=== PATIENT | female | born 1995 | race Caucasian/White ===

== ENCOUNTER 2018-07-21 12:27 | Emergency (ER) | payer SELFPAY ==
--- NOTE | 2018-07-21 14:58 | ER ---
Nurse's Notes [facility] Name: Sofya Summers Age: 23 yrs Sex: Female : 1995 Arrival Date: 07/21/2018 Time: 12:33 Bed 9 Private MD: Diagnosis: Abnormal uterine and vaginal bleeding, unspecified Presentation: 07/21 12:36 Presenting complaint: Patient states: " I think I may be and having a ph miscarriage." Pt reports having irregular cycles x 2 months, also reports having heavy vaginal bleeding, low back pain, and sore breasts, states, " I've taken like 3 tests and they have all been negative but I've been having symptoms." Pt reports last episode of bleeding was Tues, denies bleeding or pain at this time. Transition of care: patient was not received from another setting of care. Onset of symptoms was July 21, 2018. Risk Assessment: Do you want to hurt yourself or someone else? Patient reports no desire to harm self or others. Initial Sepsis Screen: Does the patient meet any 2 criteria? No. Patient's initial sepsis screen is negative. Does the patient have a suspected source of infection? No. Patient's initial sepsis screen is negative. 12:36 Method Of Arrival: Ambulatory ph 12:36 Acuity: SARY 3 ph 13:00 Care prior to arrival: None. ss Historical: - Allergies: 12:41 No Known Allergies; ph - PMHx: 12:41 None; ph - Immunization history:: Adult Immunizations up to date. - Social history:: Smoking status: unknown. Screenin:40 Abuse screen: Denies threats or abuse. Denies injuries from another. Nutritional ss screening: No deficits noted. Tuberculosis screening: No symptoms or risk factors identified. Never had TB. Fall Risk None identified. Assessment: 14:40 General: Appears in no apparent distress. comfortable, Behavior is calm, cooperative, ss Denies fever, feeling ill, fatigue, chills. Pain: Complains of pain in suprapubic area Pain currently is 0 out of 10 on a pain scale. Quality of pain is described as crampy, Is episodic. Neuro: Level of Consciousness is awake, alert, obeys commands. Respiratory: Airway is patent Respiratory effort is even, unlabored, Respiratory pattern is regular, symmetrical. GI: Patient currently denies diarrhea, nausea, vomiting. : Reports irregular vaginal bleeding for approx 1 month. Pt reports that two days ago she went to void, and felt pressure, so she pushed and a large clot came out. Pt believed this to be a possible miscarriage as her period has been irregular, but she has had negative tests. Denies burning with urination, urinary frequency. EENT: Nares are clear Oral mucosa is moist. Derm: Skin is intact, is healthy with good turgor, Skin is dry, Skin is pink, warm \\T\\ dry. normal. Vital Signs: 12:41 BP 145 / 94; Pulse 97; Resp 18; Temp 97.4; Pulse Ox 99% on R/A; ph ED Course: 12:33 Patient arrived in ED. sb2 12:41 Triage completed. ph 12:41 Arm band placed on Patient placed in waiting room, Patient notified of wait time. Urine ph obtained. 14:33 Karishma Romero FNP-C [facility]. kb 14:33 Israel Palm MD is Attending Physician. kb 14:40 Patient has correct armband on for positive identification. Bed in low position. Call ss light in reach. 15:06 Meeta Garza, RN is Primary Nurse. ss 15:09 No provider procedures requiring assistance completed. Patient did not have IV access ss during this emergency room visit. Administered Medications: No medications were administered Outcome: 14:57 Discharge ordered by . kb 15:09 Discharged to home ambulatory, with significant other. ss 15:09 Condition: good 15:09 Discharge instructions given to patient, Instructed on discharge instructions, follow up and referral plans. Demonstrated understanding of instructions, follow-up care. 15:10 Patient left the ED. ss Signatures: Karishma Romeor FNP-C FNP-Meeta Padilla, RN RN ss Giselle Swanson RN RN Gilda Horne sb2
--- NOTE | 2018-07-21 14:58 | EDPHYS ---
Physician Documentation [facility] Name: Sofya Summers Age: 23 yrs Sex: Female : 1995 Arrival Date: 07/21/2018 Time: 12:33 Bed 9 Private MD: ED Physician Israel Palm HPI: 07/21 14:54 This 23 yrs old Female presents to ER via Ambulatory with complaints of kb Vaginal Bleeding. 14:54 The patient presents with vaginal bleeding that is spotting. Onset: The kb symptoms/episode began/occurred 3 day(s) ago. Modifying factors: The symptoms are alleviated by nothing, the symptoms are aggravated by nothing. Associated signs and symptoms: Pertinent positives: vaginal bleeding, Pertinent negatives: constipation, cramping, diarrhea, dyspareunia, dysuria, fever, hematuria, nausea, urinary frequency, vaginal discharge, vomiting. Severity of symptoms: At their worst the symptoms were moderate, in the emergency department the symptoms have resolved. The patient has not experienced similar symptoms in the past. The patient has not recently seen a physician. Pt reports a heavy one day period last month that was late, then on Tuesday passed a large clot. Had abd cramps on Tuesday. Reports she hasn't had any pain since Tuesday and now only has a small amount of blood when she wipes. States "I think I had a miscarriage on Tuesday, but the three tests I took were negative.". Historical: - Allergies: 12:41 No Known Allergies; ph - PMHx: 12:41 None; ph - Immunization history:: Adult Immunizations up to date. - Social history:: Smoking status: unknown. ROS: 14:53 Constitutional: Negative for fever, chills, and weight loss, Cardiovascular: Negative kb for chest pain, palpitations, and edema, Respiratory: Negative for shortness of breath, cough, wheezing, and pleuritic chest pain, Back: Negative for injury and pain, MS/Extremity: Negative for injury and deformity, Skin: Negative for injury, rash, and discoloration, Neuro: Negative for headache, weakness, numbness, tingling, and seizure. 14:53 Abdomen/GI: Positive for abdominal cramps. 14:53 : Positive for vaginal bleeding. Exam: 14:54 Constitutional: This is a well developed, well nourished patient who is awake, alert, kb and in no acute distress. Head/Face: Normocephalic, atraumatic. ENT: Nares patent. No nasal discharge, no septal abnormalities noted. Tympanic membranes are normal and external auditory canals are clear. Oropharynx with no redness, swelling, or masses, exudates, or evidence of obstruction, uvula midline. Mucous membranes moist. Neck: Trachea midline, no thyromegaly or masses palpated, and no cervical lymphadenopathy. Supple, full range of motion without nuchal rigidity, or vertebral point tenderness. No Meningismus. Chest/axilla: Normal chest wall appearance and motion. Nontender with no deformity. No lesions are appreciated. Cardiovascular: Regular rate and rhythm with a normal S1 and S2. No gallops, murmurs, or rubs. Normal PMI, no JVD. No pulse deficits. Respiratory: Lungs have equal breath sounds bilaterally, clear to auscultation and percussion. No rales, rhonchi or wheezes noted. No increased work of breathing, no retractions or nasal flaring. Abdomen/GI: Soft, non-tender, with normal bowel sounds. No distension or tympany. No guarding or rebound. No evidence of tenderness throughout. Skin: Warm, dry with normal turgor. Normal color with no rashes, no lesions, and no evidence of cellulitis. MS/ Extremity: Pulses equal, no cyanosis. Neurovascular intact. Full, normal range of motion. Neuro: Awake and alert, GCS 15, oriented to person, place, time, and situation. Cranial nerves II-XII grossly intact. Motor strength 5/5 in all extremities. Sensory grossly intact. Cerebellar exam normal. Normal gait. Vital Signs: 12:41 BP 145 / 94; Pulse 97; Resp 18; Temp 97.4; Pulse Ox 99% on R/A; ph MDM: 14:35 Patient medically screened. kb 14:53 Data reviewed: vital signs, nurses notes. Data interpreted: Pulse oximetry: on room air kb is 99 %. Interpretation: normal. Counseling: I had a detailed discussion with the patient and/or guardian regarding: the historical points, exam findings, and any diagnostic results supporting the discharge/admit diagnosis, lab results, the need for outpatient follow up, an OB/Gyne specialist, to return to the emergency department if symptoms worsen or persist or if there are any questions or concerns that arise at home. 07/21 14:34 Order name: Urine Dipstick--Ancillary (enter results) em1 07/21 14:34 Order name: Urine --Ancillary (enter results) em1 07/21 14:00 Order name: Urine Test (obtain specimen); Complete Time: 14:32 kb 07/21 14:00 Order name: Urine Dipstick-Ancillary (obtain specimen); Complete Time: 14:31 kb Administered Medications: No medications were administered Disposition: 07/21/18 14:57 Discharged to Home. Impression: Abnormal uterine and vaginal bleeding, unspecified. - Condition is Stable. - Discharge Instructions: Abnormal Uterine Bleeding, [id number]. - Medication Reconciliation Form, Thank You Letter, Antibiotic Education, Prescription Opioid Use, Family Work Release form. - Follow up: Emergency Department; When: As needed; Reason: Worsening of condition. Follow up: Private Physician; When: 2 - 3 days; Reason: Recheck today's complaints, Continuance of care, Re-evaluation by your physician. Addendum: 07/23/2018 09:10 Co-signature as Attending Physician, Israel Palm MD I agree with the assessment and k dr plan of care. Signatures: Dispatcher [employer] EDMS Karishma Romero, CALL CENTER DISPATCHER-C CALL CENTER DISPATCHER-Ckb Israel Palm MD MD [facility] Meeta Garza RN RN ss Giselle Swanson RN RN ph Corrections: (The following items were deleted from the chart) 07/21 15:10 14:57 07/21/2018 14:57 Discharged to Home. Impression: Abnormal uterine and vaginal ss bleeding, unspecified. Condition is Stable. Forms are Medication Reconciliation Form, Thank You Letter, Antibiotic Education, Prescription Opioid Use. Follow up: Emergency Department; When: As needed; Reason: Worsening of condition. Follow up: Private Physician; When: 2 - 3 days; Reason: Recheck today's complaints, Continuance of care, Re-evaluation by your physician. kb
[2018-07-21 15:12] LABS: Urine Blood 2+ (NEG); Urine Glucose NEGATIVE (NEG); Urine Protein NEGATIVE (NEG); Urine Specific Gravity 1.025 (1.005-1.030); Urine pH 7.5 (5.0-7.0)
== END 2018-07-21 15:10 | disposition home or self-care (01) ==
LOC: ER 12:27
DX: N93.9 Abnormal uterine and vaginal bleeding, unspecified (principal)
CPT/HCPCS: 81003; 81025; 99283

== ENCOUNTER 2021-02-01 12:42 | Emergency (ER) | payer OTHER, SELFPAY ==
[2021-02-01] MEDS ORDERED: NA CHLORIDE 0.9% 1,000 ML ONE ×2 (14:04→15:12)
[2021-02-01] MEDS ORDERED: PROMETHAZINE INJ 25 MG/ML AMP ONE (14:04)
[2021-02-01 14:07] LABS: Urine Blood Trace-lysed (Negative); Urine Glucose Negative (Negative); Urine Protein 1+ (Negative); Urine Specific Gravity >=1.030 (1.005-1.030); Urine pH 5.5 (5.0-7.0)
[2021-02-01 14:11] LABS: Absolute Lymphocytes (CBC) 2.4 K/uL (0.7-4.9); Basophils % 0.4 % (0-1.3); Hematocrit 38.8 % (36.0-45.0); Lymphocytes % 21.2 % (15.3-44.8); RBC Red Blood Cell Count 4.61 M/uL (3.86-4.86)
[2021-02-01 14:45] LABS: BUN Blood Urea Nitrogen 4 mg/dL (7-18); Bicarbonate 23 mmol/L (21-32); Glucose Level 83 mg/dL (74-106); HCG, Quantitative 91735 mIU/mL (1-3); Potassium 3.5 mmol/L (3.5-5.1); Sodium Level 138 mmol/L (136-145)
--- NOTE | 2021-02-01 15:02 | ER ---
Nurse's Notes [facility] Name: Sofya Summers Age: 25 yrs Sex: Female : 1995 Arrival Date: 02/01/2021 Time: 12:46 Bed 20 Private MD: Diagnosis: 9 weeks gestation of ;Nausea with vomiting, unspecified Presentation: 02/01 12:52 Chief complaint: Patient states: 11 weeks . G1, P0. N/V/D for 3-4 weeks. No ll1 fever. Coronavirus screen: Client denies travel out of the [place] in the last 14 days. At this time, the client does not indicate any symptoms associated with coronavirus-19. Ebola Screen: Patient denies travel to an Ebola-affected area in the 21 days before illness onset. Initial Sepsis Screen: Does the patient meet any 2 criteria? No. Patient's initial sepsis screen is negative. Does the patient have a suspected source of infection? Yes: Acute abdominal pain Other: N/V/D. Risk Assessment: Do you want to hurt yourself or someone else? Patient reports no desire to harm self or others. Onset of symptoms was January 11, 2021. 12:52 Method Of Arrival: Ambulatory ll1 12:52 Acuity: SARY 3 ll1 SPA HOST: 14:22 LMP 11/15/2020 ae4 15:29 1, 0, Living 0, LMP 11/15/2020 kb Historical: - Allergies: 12:55 No Known Allergies; ll1 - PMHx: 12:55 Diabetes - NIDDM; ll1 - PSHx: 12:55 None; ll1 - Immunization history:: Client reports having NOT received the Covid vaccine. Flu vaccine is not up to date. - Social history:: Smoking status: Patient denies any tobacco usage or history of. Screenin:11 Abuse screen: Denies threats or abuse. Nutritional screening: No deficits noted. ae4 Tuberculosis screening: No symptoms or risk factors identified. Fall Risk None identified. Assessment: 14:00 General: Appears in no apparent distress. comfortable, Behavior is calm, cooperative. ae4 Pain: Complains of pain in suprapubic area, right lower quadrant and left lower quadrant described as "crampy". Neuro: Level of Consciousness is awake, alert, obeys commands, Oriented to person, place, time, situation, Appropriate for age. Cardiovascular: Patient's skin is warm and dry. Respiratory: Airway is patent Respiratory effort is even, unlabored, Respiratory pattern is regular, symmetrical. GI: Abdomen is round. GI: Reports nausea, Patient states she has not been "feeling good for about 5 weeks". : Urine is dark yellowish brown in color. EENT: No signs and/or symptoms were reported regarding the EENT system. Derm: Skin is pink, warm \\T\\ dry. Musculoskeletal: No signs and/or symptoms reported regarding the musculoskeletal system. 14:11 Reassessment: signals collection technician at bedside. ae4 15:00 Reassessment: Patient appears in no apparent distress at this time. Patient and/or ph family updated on plan of care and expected duration. Pain level reassessed. Patient is alert, oriented x 3, equal unlabored respirations, skin warm/dry/pink. Vital Signs: 12:52 BP 140 / 92; Pulse 81; Resp 17; Temp 98.5; Pulse Ox 97% ; Weight 102.97 kg; Height 5 ll1 ft. 6 in. (167.64 cm); Pain 10/10; 14:06 BP 127 / 74; Pulse 92; Resp 18; Pulse Ox 100% on R/A; ae4 15:00 BP 118 / 70; Pulse 87; Resp 18; Temp 98.2; Pulse Ox 99% on R/A; ph 12:52 Body Mass Index 36.64 (102.97 kg, 167.64 cm) ll1 ED Course: 12:46 Patient arrived in ED. am2 12:50 Karish[facility]C [facility]. kb 12:50 Fei Nair MD is Attending Physician. kb 12:54 Triage completed. ll1 12:55 Arm band placed on Patient placed in an exam room, on a stretcher. ll1 12:59 Giselle Swanson RN is Primary Nurse. ph 13:54 Inserted saline lock: 20 gauge in left antecubital area, using aseptic technique. Blood dh4 collected. 14:11 Patient has correct armband on for positive identification. Adult w/ patient. Pulse ox ae4 on. NIBP on. 14:32 Matter Eval Tm 1 In Process Unspecified. EDMS 15:58 No provider procedures requiring assistance completed. IV discontinued, intact, ph bleeding controlled, No redness/swelling at site. Pressure dressing applied. Administered Medications: 14:00 Drug: NS 0.9% 1000 ml Route: IV; Rate: 1000 ml; Site: left antecubital; ae4 14:00 Drug: Phenergan (promethazine) 6.25 mg Route: IVP; Site: left antecubital; ae4 14:57 Follow up: Response: Nausea is decreased ae4 14:57 Drug: NS 0.9% 1000 ml Route: IV; Rate: 1000 ml; Site: left antecubital; ae4 Outcome: 15:02 Discharge ordered by . kb 15:58 Patient left the ED. ph 15:58 Discharged to home ambulatory, with significant other. ph 15:58 Condition: good 15:58 Discharge instructions given to patient, Instructed on discharge instructions, follow up and referral plans. medication usage, Demonstrated understanding of instructions, follow-up care, medications, Prescriptions given X 1. Signatures: Dispatcher [employer] EDKarishma Balderrama, PLAYERS ASSISTANT-C PLAYERS ASSISTANT-CkGiselle Shea, RN RN Jaquelin Contreras 2 Catalino Calderon RN RN ae4 David Boucher 4 Ashley Arceo RN RN ll1
--- NOTE | 2021-02-01 15:02 | EDPHYS ---
Physician Documentation [facility] Name: Sofya Summers Age: 25 yrs Sex: Female : 1995 Arrival Date: 02/01/2021 Time: 12:46 Bed 20 Private MD: ED Physician Fei Nair HPI: 02/01 15:29 This 25 yrs old Female presents to ER via Ambulatory with complaints of kb Nausea/Vomiting - 11 wks preg. 15:29 The patient has not experienced similar symptoms in the past. The patient has been kb recently seen by a physician:. 15:29 The patient presents to the emergency department with nausea and vomiting. The kb estimated gestational age is 11 weeks. course: care: at a clinic, Leakage of Fluid: none appreciated. Previous pregnancies: the patient has never been . Associated signs and symptoms: Pertinent positives: abdominal pain, diarrhea, nausea, vomiting. Pt reports nausea and vomiting for 3-4 weeks. States she has told her OB and was prescribed phenergan and diclegis but she is unable to tolerate the medications. States she also has had diarrhea, but that has been going on for about a year. Reports lower abd cramping as well. States "I haven't had an US at all, I haven't heard the heart beat, I don't even know if there's still a baby in there.". REGISTERED NURSE: 14:22 LMP 11/15/2020 ae4 15:29 1, 0, Living 0, LMP 11/15/2020 kb Historical: - Allergies: 12:55 No Known Allergies; ll1 - PMHx: 12:55 Diabetes - NIDDM; ll1 - PSHx: 12:55 None; ll1 - Immunization history:: Client reports having NOT received the Covid vaccine. Flu vaccine is not up to date. - Social history:: Smoking status: Patient denies any tobacco usage or history of. ROS: 15:28 Constitutional: Negative for fever, chills, and weight loss. kb 15:28 Abdomen/GI: Positive for nausea, vomiting, and diarrhea, abdominal cramps. 15:28 All other systems are negative. Exam: 15:28 Constitutional: This is a well developed, well nourished patient who is awake, alert, kb and in no acute distress. Head/Face: Normocephalic, atraumatic. ENT: Moist Mucous membranes Cardiovascular: Regular rate and rhythm with a normal S1 and S2. No gallops, murmurs, or rubs. No pulse deficits. Respiratory: Respirations even and unlabored. No increased work of breathing, no retractions or nasal flaring. Skin: Warm, dry with normal turgor. Normal color. MS/ Extremity: Pulses equal, no cyanosis. Neurovascular intact. Full, normal range of motion. Neuro: Awake and alert, GCS 15, oriented to person, place, time, and situation. Moves all extremities. Normal gait. Psych: Awake, alert, with orientation to person, place and time. Behavior, mood, and affect are within normal limits. 15:28 Abdomen/GI: Inspection: abdomen appears normal, Bowel sounds: normal, in all quadrants, Palpation: soft, in all quadrants, mild abdominal tenderness, in the right lower quadrant and left lower quadrant. Vital Signs: 12:52 BP 140 / 92; Pulse 81; Resp 17; Temp 98.5; Pulse Ox 97% ; Weight 102.97 kg; Height 5 ll1 ft. 6 in. (167.64 cm); Pain 10/10; 14:06 BP 127 / 74; Pulse 92; Resp 18; Pulse Ox 100% on R/A; ae4 15:00 BP 118 / 70; Pulse 87; Resp 18; Temp 98.2; Pulse Ox 99% on R/A; ph 12:52 Body Mass Index 36.64 (102.97 kg, 167.64 cm) ll1 MDM: 12:57 Patient medically screened. kb 15:00 Data reviewed: vital signs, nurses notes. Data interpreted: Pulse oximetry: on room air kb is 100 %. Interpretation: normal. Counseling: I had a detailed discussion with the patient and/or guardian regarding: the historical points, exam findings, and any diagnostic results supporting the discharge/admit diagnosis, lab results, radiology results, the need for outpatient follow up, an OB/Gyne specialist, to return to the emergency department if symptoms worsen or persist or if there are any questions or concerns that arise at home. 02/01 13:12 Order name: Quantitative Hcg; Complete Time: 14:48 kb 02/01 13:12 Order name: Abo/rh Typing; Complete Time: 14:20 kb 02/01 13:12 Order name: Basic Metabolic Panel; Complete Time: 14:48 kb 02/01 13:12 Order name: CBC with Diff; Complete Time: 14:20 kb 02/01 14:06 Order name: Urine Dipstick-Ancillary; Complete Time: 14:08 EDMS 02/01 14:25 Order name: Urine --Ancillary (enter results); Complete Time: 15:00 eb 02/01 13:12 Order name: Urine Test (obtain specimen); Complete Time: 14:05 kb 02/01 13:12 Order name: IV Saline Lock; Complete Time: 13:54 kb 02/01 13:12 Order name: Labs collected and sent; Complete Time: 13:54 kb 02/01 14:32 Order name: Matter Eval Tm 1 EDMS 02/01 13:12 Order name: NPO; Complete Time: 14:05 kb 02/01 13:12 Order name: Urine Dipstick-Ancillary (obtain specimen); Complete Time: 14:05 kb 02/01 14:48 Order name: PO challenge; Complete Time: 14:57 kb Administered Medications: 14:00 Drug: NS 0.9% 1000 ml Route: IV; Rate: 1000 ml; Site: left antecubital; ae4 14:00 Drug: Phenergan (promethazine) 6.25 mg Route: IVP; Site: left antecubital; ae4 14:57 Follow up: Response: Nausea is decreased ae4 14:57 Drug: NS 0.9% 1000 ml Route: IV; Rate: 1000 ml; Site: left antecubital; ae4 Disposition: 18:08 Co-signature as Attending Physician, Fei Nair MD. rn Disposition: 02/01/21 15:02 Discharged to Home. Impression: 9 weeks gestation of , Nausea with vomiting, unspecified. - Condition is Stable. - Discharge Instructions: Morning Sickness, Oduh-[id number], First Trimester of , [id number]. - Prescriptions for Phenergan 25 mg Rectal Suppository - insert 1 suppository by RECTAL route every 8 hours As needed; 12 suppository. - Medication Reconciliation Form, Thank You Letter, Antibiotic Education, Prescription Opioid Use form. - Follow up: Emergency Department; When: As needed; Reason: Worsening of condition. Follow up: Private Physician; When: 2 - 3 days; Reason: Recheck today's complaints, Continuance of care, Re-evaluation by your physician. Signatures: Dispatcher [employer] EDWI Karishma Romero, MEND WORKER-C MEND WORKER-Fei Varela MD MD rn Hall, Patricia RN RN ph Catalino Calderon RN RN ae4 Ashley Arceo RN RN ll1 Corrections: (The following items were deleted from the chart) 14:32 13:12 Transvaginal Ob+US.RAD.BRZ ordered. [facility] 15:58 15:02 02/01/2021 15:02 Discharged to Home. Impression: 9 weeks gestation of ; ph Nausea with vomiting, unspecified. Condition is Stable. Forms are Medication Reconciliation Form, Thank You Letter, Antibiotic Education, Prescription Opioid Use. Follow up: Emergency Department; When: As needed; Reason: Worsening of condition. Follow up: Private Physician; When: 2 - 3 days; Reason: Recheck today's complaints, Continuance of care, Re-evaluation by your physician. kb
[2021-02-01 16:11] VITALS: TEMP 98.5
[2021-02-01 16:25] VITALS: BP 127/74; O2SAT 100
--- NOTE | 2021-02-01 16:39 | RAD REPORT ---
EXAM DESCRIPTION: US - Matter Richard Tm 1 - 02/01/2021 2:33 pm CLINICAL HISTORY: ABD CRAMPING, Early . COMPARISON: No comparisons FINDINGS: A single gestational sac is seen within the uterus. The shape of the sac is within normal limits for gestational age. Within the sac is a single pole with crown-rump length of 2.7 cm, c orrelating to estimated gestational age of 9 weeks 1 day. Estimated date of delivery is 09/05/2021. Heart rate is 165 BPM. The placenta is not yet developed / visualized due to early gestational age. The maternal adnexa and ovaries are within normal limits. Normal Doppler blood flow was demonstrated to both ovaries. IMPRESSION: Single live early intrauterine gestation with estimated gestational age of 9 weeks and 1 day, KENYA 09/05/2021.
== END 2021-02-01 15:58 | disposition home or self-care (01) ==
LOC: ER 12:42
DX: O21.9 Vomiting of pregnancy, unspecified (principal); Z3A.09 9 weeks gestation of pregnancy
CPT/HCPCS: 85025; 80048; 36415; 86900; 81025; 86901; 84702; 81003; 76801; J2550; J7030 ×2; 96374; 99284